=== PATIENT | female | born 1960 | race Caucasian/White ===

== ENCOUNTER 2019-02-03 19:45 | Emergency (ER) | payer MEDICAID ==
[~2019-02-03] VITALS: Ht 154.9 cm; Wt 43.0 kg
--- NOTE | 2019-02-03 20:45 | NUR ---
The kirsten is a 58 year old female who was brought in on a 5150 hold by [facility] for being a danger to herself. She has been drinking and made vague suicidal statements. On arrival to the ER she was assigned bed 21. She was beligerent and refusing an assessment from nursing ot the ER MD. Belongings were inventoried and she was changed into green scrubs.
--- NOTE | 2019-02-03 20:49 | NUR ---
The patient was given a urine cup and did try to provide a specimen but she dropped the cup in the toilet. She is not cooperative enough for a telepsych consult at this time.
[2019-02-03 21:27] LABS: URINE HCG NEGATIVE (NEG)
--- NOTE | 2019-02-03 21:33 | NUR ---
The patient is asking about smoking and she was made aware of the no smoking policy and was offered a nicotine patch but she declined. She also asked about how long she would be here and the 5149 process was explained to her.
[2019-02-03] MEDS ORDERED: nicotine 7mg patch - 24hr TD ONE (21:40)
[2019-02-03 21:42] LABS: URINE AMPHETAMINE SCREEN NEGATIVE (Neg); URINE BARBITUATE SCREEN NEGATIVE (Neg); URINE BENZODIAZEPINES SCREEN NEGATIVE (Neg); URINE CANNABINOID SCREEN NEGATIVE (Neg); URINE COCAINE SCREEN NEGATIVE (Neg); URINE METHADONE SCREEN NEGATIVE (Neg); URINE OPIATE SCREEN NEGATIVE (Neg); URINE PHENCYCLIDINE SCREEN NEGATIVE (Neg)
[2019-02-03 21:43] LABS: BASOPHILS # (AUTO) 0.1 X10'3 (0-0.2); BASOPHILS % (AUTO) 1.1 % (0-1); EOSINOPHILS # (AUTO) 0.1 X10'3 (0-0.9); EOSINOPHILS % (AUTO) 0.6 % (0-6); HEMATOCRIT 48.1 % (35.0-45.0); HEMOGLOBIN 16.3 g/dl (12.0-16.0); LYMPHOCYTES # (AUTO) 2.8 X10'3 (1.1-4.8); LYMPHOCYTES % (AUTO) 27.4 % (21-51); MEAN CORPUSCULAR HEMOGLOBIN 32.2 PG (27.0-31.0); MEAN CORPUSCULAR HGB CONC 33.9 g/dL (33.0-36.5); MEAN CORPUSCULAR VOLUME 95.1 FL (78-98); MEAN PLATELET VOLUME 9.2 FL (7.4-10.4); MONOCYTES # (AUTO) 0.4 X10'3 (0-0.9); NEUTROPHILS # (AUTO) 6.8 X10'3 (1.8-7.7); NEUTROPHILS % (AUTO) 66.9 % (42-75); PLATELET COUNT 310 X10'3 (140-440); RED BLOOD COUNT 5.06 X10'6 (4.20-5.60); RED CELL DISTRIBUTION WIDTH 16.9 % (11.5-14.5); WHITE BLOOD COUNT 10.2 X10'3 (4.5-11.0)
--- NOTE | 2019-02-03 21:46 | NUR ---
The patient accepted a nicotine patch.
[2019-02-03 21:48] LABS: ALANINE AMINOTRANSFERASE 21 U/L (12-78); ALBUMIN 3.5 G/DL (3.4-5.0); ALBUMIN/GLOBULIN RATIO 1.1 (1.1-1.5); ALKALINE PHOSPHATASE 100 IU/L (46-116); ANION GAP 12 (8-16); ASPARTATE AMINO TRANSFERASE 21 U/L (10-37); BILIRUBIN,TOTAL 0.6 MG/DL (0.1-1.0); BLOOD UREA NITROGEN 6 MG/DL (7-18); BUN/CREATININE RATIO 8.5 (6.6-38.0); CALCIUM 8.6 MG/DL (8.5-10.1); CHLORIDE 99 MMOL/L (99-107); CREATININE 0.71 MG/DL (0.40-0.90); GLUCOSE 78 MG/DL (70-104); POTASSIUM 3.9 MMOL/L (3.5-5.1); SODIUM 134 MMOL/L (135-145); TOTAL PROTEIN 6.7 G/DL (6.4-8.2); eGFR 85 ML/MIN
[2019-02-03 22:02] LABS: ETHANOL 0.269 GM/DL (0.0-0.010)
[2019-02-03 22:06] LABS: ACETAMINOPHEN < 2.0 UG/ML (10-30)
--- NOTE | 2019-02-03 22:35 | NUR ---
The patient appears to be sleeping
--- NOTE | 2019-02-03 22:58 | NUR ---
Packet faxed to [facility]. Unable to comfirm receipt of packet as [id number] hours.
--- NOTE | 2019-02-04 00:58 | NUR ---
The patient appears to be asleep
[2019-02-04] MEDS ORDERED: mag hydrox/Alum hydrox/simeth 30ml oral suspension PO ONE ×2 (02:00→07:05)
[2019-02-04] MEDS ORDERED: ipratropium/albuterol 3ml nebule NEB ONE (02:35)
[2019-02-04] MEDS ORDERED: ondansetron 4mg rapidly disintigrating tab PO ONE (02:45)
--- NOTE | 2019-02-04 03:04 | NUR ---
The patient complained of nausea with emesis X's one. Respiratory wheezes on the right. Patient reports chronic cough for 4 months. Patient with frequent coughing. Dr. Grover made aware and orders received.
[2019-02-04] MEDS ORDERED: normal saline 1000ml 1,000 ML IV ONE (03:20)
--- NOTE | 2019-02-04 03:38 | NUR ---
The patient is coughing frequently. Dr. Grover made aware and examined the patient.
[2019-02-04] MEDS ORDERED: benzonatate 100mg capsule PO ONE (03:45)
--- NOTE | 2019-02-04 05:24 | NUR ---
The patient appears to be asleep at this time
[2019-02-04] MEDS ORDERED: ondansetron/PF 4mg/2ml inj IV ONE (05:45)
--- NOTE | 2019-02-04 06:52 | NUR ---
Assumed care of patient. Patient resting in bed quite with eyes closed. Patient coughing at times.
--- NOTE | 2019-02-04 07:03 | NUR ---
Patient complains of acid reflux requesting and anti-acid. Dr. Kolby DELGADILLO for Malox.
--- NOTE | 2019-02-04 07:25 | NUR ---
Patient ambulated to restroom with steady gait.
--- NOTE | 2019-02-04 07:52 | NUR ---
Mental Health at bedside talking with patient.
[2019-02-04 08:38] VITALS: BP 102/66
--- NOTE | 2019-02-04 08:53 | NUR ---
Patient preparing to be discharged home. IV removed, cath intact. Patient ambulated to restroom with steady gait.
== END 2019-02-04 09:42 | disposition home or self-care (01) ==
LOC: ER 19:46
DX: R45.851 Suicidal ideations (principal); Z90.49 Acquired absence of other specified parts of digestive tract; Z56.0 Unemployment, unspecified; Z88.6 Allergy status to analgesic agent
CPT/HCPCS: 36415; 71045; 80053; 80305; 80320; 80329; 81025; 84443; 85025; 94640; 94760; 96374; 99285; J2405; J7030

== ENCOUNTER 2019-06-25 06:54 | Emergency (ER) | payer MEDICAID ==
[~2019-06-25] VITALS: Ht 160 cm; Wt 40.9 kg
[2019-06-25] MEDS ORDERED: ketorolac tromethamine 15mg/ml inj. IV ONE (07:55)
[2019-06-25] MEDS ORDERED: morphine 4 MG/ML inj SYRINge IV PRN (07:55)
[2019-06-25] MEDS ORDERED: ondansetron/PF 4mg/2ml inj IV ONE (07:55)
[2019-06-25 08:08] VITALS: BP 96/61
[2019-06-25] MEDS ORDERED: normal saline 1000ML IV soln IVB ONE (08:15)
[2019-06-25 08:45] LABS: BASOPHILS % (AUTO) 0.2 % (0-1); EOSINOPHILS % (AUTO) 0.1 % (0-6); HEMOGLOBIN 14.6 g/dl (12.0-16.0); LYMPHOCYTES # (AUTO) 0.8 X10'3 (1.1-4.8); LYMPHOCYTES % (AUTO) 7.5 % (21-51); MEAN PLATELET VOLUME 9.1 FL (7.4-10.4); MONOCYTES # (AUTO) 0.5 X10'3 (0-0.9); MONOCYTES % (AUTO) 4.3 % (2-12); NEUTROPHILS # (AUTO) 9.8 X10'3 (1.8-7.7); NEUTROPHILS % (AUTO) 87.9 % (42-75); PLATELET COUNT 204 X10'3 (140-440); RED BLOOD COUNT 4.57 X10'6 (4.20-5.60); RED CELL DISTRIBUTION WIDTH 13.5 % (11.5-14.5); WHITE BLOOD COUNT 11.2 X10'3 (4.5-11.0)
[2019-06-25 08:59] LABS: ALANINE AMINOTRANSFERASE 25 U/L (12-78); ALBUMIN 3.6 G/DL (3.4-5.0); ALBUMIN/GLOBULIN RATIO 1.2 (1.1-1.5); ALKALINE PHOSPHATASE 103 IU/L (46-116); ANION GAP 15 (8-16); ASPARTATE AMINO TRANSFERASE 21 U/L (10-37); BILIRUBIN,TOTAL 0.7 MG/DL (0.1-1.0); BLOOD UREA NITROGEN 9 MG/DL (7-18); BUN/CREATININE RATIO 14.8 (6.6-38.0); CALCIUM 8.3 MG/DL (8.5-10.1); CHLORIDE 99 MMOL/L (99-107); CREATININE 0.61 MG/DL (0.40-0.90); ETHANOL 0.129 GM/DL (0.0-0.010); GLUCOSE 57 MG/DL (70-104); POTASSIUM 4.5 MMOL/L (3.5-5.1); SODIUM 134 MMOL/L (135-145); TOTAL CARBON DIOXIDE 19.7 MMOL/L (24-32); TOTAL PROTEIN 6.6 G/DL (6.4-8.2); eGFR > 90 ML/MIN
== END 2019-06-25 09:29 | disposition home or self-care (01) ==
LOC: ER 06:55
DX: S70.02XA Contusion of left hip, initial encounter (principal); F10.129 Alcohol abuse with intoxication, unspecified; Z87.11 Personal history of peptic ulcer disease; Z90.49 Acquired absence of other specified parts of digestive tract; Z98.890 Other specified postprocedural states; Z56.0 Unemployment, unspecified; Z88.5 Allergy status to narcotic agent; W01.0XXA Fall on same level from slipping, tripping and stumbling without subsequent striking against object, initial encounter; Y93.89 Activity, other specified; Y92.89 Other specified places as the place of occurrence of the external cause; Y99.8 Other external cause status
CPT/HCPCS: 36415; 73502; 80053; 80320; 85025; 96374; 96375; 99284; J1885; J2405; J7030

== ENCOUNTER 2020-12-20 09:19 | Emergency (ER) | payer MEDICAID ==
[~2020-12-20] VITALS: Ht 160 cm; Wt 40.0 kg
[2020-12-20] MEDS ORDERED: HYDROcodone/acetaminophen 10/325mg tab PO ONE (09:35)
[2020-12-20] MEDS ORDERED: naproxen 500mg tablet PO ONE (09:35)
[2020-12-20] MEDS ORDERED: NAPR-56 PO (11:15)
[2020-12-20] MEDS ORDERED: HYDR-3965 PO (11:15)
[2020-12-20 11:58] VITALS: BP 100/56
== END 2020-12-20 11:50 | disposition home or self-care (01) ==
LOC: ER 09:19
DX: S92.002A Unspecified fracture of left calcaneus, initial encounter for closed fracture (principal); F17.200 Nicotine dependence, unspecified, uncomplicated; Z90.49 Acquired absence of other specified parts of digestive tract; Z72.89 Other problems related to lifestyle; Z60.2 Problems related to living alone; Z56.0 Unemployment, unspecified; Z88.5 Allergy status to narcotic agent; Z88.8 Allergy status to other drugs, medicaments and biological substances; Z79.899 Other long term (current) drug therapy; W01.0XXA Fall on same level from slipping, tripping and stumbling without subsequent striking against object, initial encounter; Y93.89 Activity, other specified; Y92.89 Other specified places as the place of occurrence of the external cause; Y99.8 Other external cause status
CPT/HCPCS: 29515; 73610; 73630; 99284

== ENCOUNTER 2021-01-20 11:50 | Inpatient (IN) | payer MEDICAID ==
[~2021-01-20] VITALS: Ht 160 cm; Wt 44.5 kg
[2021-01-20] VITALS (13 sets, daily range): BP systolic 92–132; BP diastolic 49–85
[~2021-01-20 11:50] MED LIST: ALBU8.5H8 INH; ASPI-1265 PO; BUSP5TAB3 PO; CHOL400T57 PO; DOCUMENT DATE & TIME OF BETA-BLOCKER PO ONE; MULT-1085 PO; PROP20TA6 PO; TIOT18CA3 INH; TRAM50TA2 PO; cefazolin/dext.iso 2gm/100ml 100 ML IV ONE; famotidine 20mg tablet PO ONE
[2021-01-20] MEDS: ringers solution, lacted 1,000 ML IV SCH (13:32)
[2021-01-20 14:13] LABS: BASOPHILS % (AUTO) 0.7 % (0-1); EOSINOPHILS # (AUTO) 0.1 X10'3 (0-0.9); EOSINOPHILS % (AUTO) 1.7 % (0-6); HEMATOCRIT 40.1 % (35.0-45.0); HEMOGLOBIN 13.6 g/dl (12.0-16.0); LYMPHOCYTES # (AUTO) 1.7 X10'3 (1.1-4.8); LYMPHOCYTES % (AUTO) 29.5 % (21-51); MEAN CORPUSCULAR HEMOGLOBIN 33.2 PG (27.0-31.0); MEAN CORPUSCULAR VOLUME 97.6 FL (78-98); MONOCYTES # (AUTO) 0.4 X10'3 (0-0.9); MONOCYTES % (AUTO) 6.8 % (2-12); NEUTROPHILS # (AUTO) 3.6 X10'3 (1.8-7.7); NEUTROPHILS % (AUTO) 61.3 % (42-75); PLATELET COUNT 290 X10'3 (140-440); RED BLOOD COUNT 4.11 X10'6 (4.20-5.60); RED CELL DISTRIBUTION WIDTH 14.3 % (11.5-14.5); WHITE BLOOD COUNT 5.8 X10'3 (4.5-11.0)
[2021-01-20 14:16] LABS: ALANINE AMINOTRANSFERASE 21 U/L (12-78); ALBUMIN 3.5 G/DL (3.4-5.0); ALBUMIN/GLOBULIN RATIO 1.1 (1.1-1.5); ALKALINE PHOSPHATASE 108 IU/L (46-116); ANION GAP 9 (8-16); ASPARTATE AMINO TRANSFERASE 18 U/L (10-37); BLOOD UREA NITROGEN 8 MG/DL (7-18); BUN/CREATININE RATIO 11.8 (6.6-38.0); CALCIUM 8.7 MG/DL (8.5-10.1); CHLORIDE 100 MMOL/L (99-107); CREATININE 0.68 MG/DL (0.40-0.90); GLUCOSE 88 MG/DL (70-104); POTASSIUM 3.8 MMOL/L (3.5-5.1); SODIUM 139 MMOL/L (135-145); TOTAL CARBON DIOXIDE 30.3 MMOL/L (24-32); TOTAL PROTEIN 6.8 G/DL (6.4-8.2); eGFR 89 ML/MIN
[2021-01-20] MEDS ORDERED: cloNIDine hcl/PF 100mcg/ml inj ONE (17:44)
[2021-01-20] MEDS ORDERED: midazolam 1 mg/ML 2ml injection ONE (17:46)
[2021-01-20] MEDS ORDERED: fentaNYL/PF 50MCG/1 ML 2ML syringe ONE (17:46)
[2021-01-20] MEDS ORDERED: ROPIVAcaine 0.5% (5mg/ml) 30ml vial ONE (17:47)
[2021-01-20] MEDS ORDERED: ePHEDrine 50MG/ML INJ. ONE (17:51)
[2021-01-20] MEDS ORDERED: sevoflurane 250ml liquid IH ONE (17:51)
[2021-01-20] MEDS ORDERED: meperidine/PF 25mg/ml syringe ONE (20:27)
[2021-01-20] MEDS ORDERED: propofol inj 20 ML IV ONE (20:28)
[2021-01-20] MEDS ORDERED: HYDROmorphone inj. 0.5 MG/0.5 ML DISP.SYRIN IV PRN (20:30)
[2021-01-20] MEDS ORDERED: morphine 2 MG/ML inj. syringe IV PRN ×2 (20:30)
[2021-01-20] MEDS ORDERED: mag hydrox/Alum hydrox/simeth 30ml oral suspension PO PRN (20:30)
[2021-01-20] MEDS ORDERED: magnesium hydroxide 30ml (MOM) UD suspension PO PRN (20:30)
[2021-01-20] MEDS ORDERED: ondansetron/PF 4mg/2ml inj IV PRN (20:30)
[2021-01-20] MEDS ORDERED: acetaminophen 325mg tablet PO PRN (20:30)
[2021-01-20] MEDS ORDERED: HYDROcodone/acetaminophen 10/325mg tab PO PRN (20:30)
[2021-01-20] MEDS ORDERED: bacitracin 15gm ointment TP ONE (20:33)
[2021-01-20] MEDS ORDERED: traMADol 50MG tablet PO PRN (20:50)
[2021-01-20] MEDS ORDERED: albuterol 2.5 MG/3 ML nebule NEB PRN (20:50)
[2021-01-20] MEDS ORDERED: busPIRone 5mg tablet PO PRN (20:50)
--- NOTE | 2021-01-20 21:02 | NUR ---
Received from OR via [facility] , accompanied by Anesthesiologist FRAN and report given by Anesthesiolgist. PATIENT WITH 20G PIV IN RIGHT UE RUNNING LR AT 100. VSS. DENIES PAIN. LEFT ANKLE SPLINT IS CDI. TOES PWD AND + CAP REFILL. 10L MASK ON WITH 100% SATURATIONS. VSS Addendum: 01/20/21 at 2111 by Juvenal Gibson RN, RN Amended: Links added.
--- NOTE | 2021-01-20 21:42 | NUR ---
PATIENT HAS MET ALL CRITERIA FOR TRANSFER TO THE SURGICAL/[facility]/PCU/ORTHO/ICU FLOOR. VSS. DRESSINGS INTACT. BED LOW, CALL LIGHT PRESENT AND 2 RAILS UP. RN PRESENT TO ACCEPT CARE OF PATIENT AND REPORT HAS BEEN CALLED. ALL QUESTIONS ANSWERED TO ACCEPTING MOSHE DELACRUZ. 1 PERSON TRANSFER FROM [facility] TO BED. POSITIONED TO COMFORT. RN PRESENT TO ASSIST. CARE TURNED OVER. DRESSINGS CDI TO LEFT LE. Addendum: 01/20/21 at 2154 by Juvenal Osborne - MOSHE RN Amended: Links added.
--- NOTE | 2021-01-20 21:45 | NUR ---
Patient in recovery room. I have received report from Juvenal MESA and had the opportunity to ask questions and assume patient care.
[2021-01-21] MEDS: ringers solution, lacted 1,000 ML IV SCH (00:18)
[2021-01-21 00:35] VITALS: BP 96/55
[2021-01-21 01:35] VITALS: BP 106/52
[2021-01-21 02:00] VITALS: BP 109/56
[2021-01-21 06:00] VITALS: BP 99/58
--- NOTE | 2021-01-21 06:18 | NUR ---
Problems reprioritized. Patient report given to Lori MESA questions answered & plan of care reviewed with .
--- NOTE | 2021-01-21 06:20 | NUR ---
received report from tracey santiago
[2021-01-21] MEDS ORDERED: cholecalciferol (vitamin D3) 1,000 unit (25mcg) tablet PO SCH (08:00)
[2021-01-21] MEDS ORDERED: multivitamins, therapeutics tablet PO SCH (08:00)
[2021-01-21] MEDS ORDERED: propranolol 10mg tablet PO SCH (08:00)
[2021-01-21] MEDS ORDERED: aspirin 81mg tab.chew PO SCH (08:00)
[2021-01-21] MEDS ORDERED: ipratropium 0.5 MG/2.5ML nebule NEB PRN (08:00)
[2021-01-21 10:00] VITALS: BP 106/53
--- NOTE | 2021-01-21 15:32 | NUR ---
PT D/C WITH INSTRUCTIONS, UNDERSTANDING OF INSTRUCTIONS AND W/ALL BELONGINGS INCLUDING POWDER PACKS AND SCOOTER, ON SCOOTER TO GO HOME AND F/U W/SURGEON
--- NOTE | 2021-01-22 15:50 | NUR ---
CASE MANAGEMENT DISCHARGE FOLLOW UP: Spoke with pt via telephone. Reports that she is having a lot of pain, rates 8/10, some oozing blood from heel, states that dressing on heel has started to have some blood come through, states she was not given any instructions on if she is to reinforce heel or not, advised her to notify MD regarding pain and if bleeding continues; denies CP, SOB, fever/chills. Verbalizes understanding of s/sx requiring further evaluation/emergent assistance. Verbalizes understanding of medications. Verbalizes compliance with MD discharge instructions, elevating leg and icing it PRN. Pt states only taking 1/2 dose of Lillian as she does not want to take the full dose. Verbalizes understanding of the importance in making/keeping follow-up appointments, will call to set up appointment. States no further questions/concerns at this time.
== END 2021-01-21 15:14 | disposition home or self-care (01) | DRG 314 ==
LOC: PCU 3S 11:50 → UNDOADMIN 11:50 → PAS IN 11:50 → PCU 3S 15:04 → ORTHO 4S 15:04 → PAS IN 20:29 → ORTHO 4S 20:29
PROVIDERS: ADMIT Podiatrist Foot & Ankle Surgery; ATTEND Podiatrist Foot & Ankle Surgery
PROC: 0SGJ0KZ Fusion of Left Tarsal Joint with Nonautologous Tissue Substitute, Open Approach (ICD-10-PCS; 2021-01-20)
PROC: 0QSM04Z Reposition Left Tarsal with Internal Fixation Device, Open Approach (ICD-10-PCS; principal; 2021-01-20 17:51)
DX: S92.002A Unspecified fracture of left calcaneus, initial encounter for closed fracture (principal); Z20.822 Contact with and (suspected) exposure to COVID-19; X58.XXXA Exposure to other specified factors, initial encounter; Z79.899 Other long term (current) drug therapy; Y93.89 Activity, other specified; Y92.89 Other specified places as the place of occurrence of the external cause; Y99.8 Other external cause status
CPT/HCPCS: 36415; 73620; 76000; 80053; 85025; 87081; 87426; 93005; 94760; A4215; A4618; A6223; A6253; A6449; A7000; C1713; C1762; G0378; J0735; J2175; J2250; J2704; J2795; J3010; J7120

== ENCOUNTER 2021-09-09 08:30 | Day surgery (SDC) | payer MEDICAID ==
[~2021-09-09] VITALS: Ht 162.6 cm; Wt 44.0 kg
[~2021-09-09 08:30] MED LIST changes: +ALBU8.5H17 INH; -ALBU8.5H8 INH; -DOCUMENT DATE & TIME OF BETA-BLOCKER PO ONE; -cefazolin/dext.iso 2gm/100ml 100 ML IV ONE; -famotidine 20mg tablet PO ONE
[2021-09-09 08:45] VITALS: BP_SYST 132
[2021-09-09] MEDS ORDERED: MIDAZolam 1 MG/ML 5ML VIAL ONE (08:48)
[2021-09-09] MEDS ORDERED: fentaNYL/PF 50MCG/1 ML 2ML syringe ONE (08:48)
[2021-09-09] MEDS ORDERED: SERT25TA PO (09:06)
[2021-09-09 10:22] VITALS: BP 117/67
[2021-09-09 10:32] VITALS: BP 115/73
[2021-09-09 10:42] VITALS: BP 123/66
[2021-09-09 10:52] VITALS: BP 150/86
== END 2021-09-09 11:05 | disposition home or self-care (01) ==
LOC: GI LAB 08:30
PROVIDERS: ATTEND Internal Medicine Gastroenterology
DX: Z09 Encounter for follow-up examination after completed treatment for conditions other than malignant neoplasm (principal); K63.5 Polyp of colon; K57.30 Diverticulosis of large intestine without perforation or abscess without bleeding; K64.8 Other hemorrhoids; I48.91 Unspecified atrial fibrillation; F17.210 Nicotine dependence, cigarettes, uncomplicated; Z86.010 Personal history of colon polyps; Z79.899 Other long term (current) drug therapy
CPT/HCPCS: 45338; 99152; C1773; J2250; J3010; J7040; Z7512; A4620